=== PATIENT | female | born 1995 | race African-American/Black ===

== ENCOUNTER 2019-06-21 11:58 | Emergency (ER) | payer SELFPAY ==
--- NOTE | 2019-06-21 13:05 | ER Document Report ---
HPI - HPI Patient complains to provider of: skin infection Time Seen by Provider: 06/21/19 12:52 Onset: Other - 4 days Onset/Duration: Persistent Quality of pain: Achy Pain Level: 3 Context: Patient complains of skin infection to right axilla and to the mons pubis area. Patient denies any fever. Patient denies any history of MRSA. Associated Symptoms: denies: Fever Exacerbated by: Denies Relieved by: Denies Similar symptoms previously: No Recently seen / treated by doctor: No - ROS ROS below otherwise negative: Yes Systems Reviewed and Negative: Yes All other systems reviewed and negative - CONSTITUTIONAL Constitutional: DENIES: Fever - REPRODUCTIVE LMP: 06/19/19 Reproductive: DENIES: : - DERM Skin Color: Erythema Skin Problems: Pustule Past Medical History - General Information source: Patient - Social History Smoking Status: Never Smoker Frequency of alcohol use: Occasional Drug Abuse: None Occupation: none Family History: Reviewed & Not Pertinent - Medical History Medical History: Negative Surgical Hx: Negative Vertical Provider Document - CONSTITUTIONAL Agree With Documented VS: Yes Exam Limitations: No Limitations General Appearance: WD/WN, No Apparent Distress - INFECTION CONTROL TRAVEL OUTSIDE OF THE [place] IN LAST 30 DAYS: No - HEENT HEENT: Atraumatic, Normocephalic - NECK Neck: Normal Inspection, Supple - RESPIRATORY Respiratory: No Respiratory Distress - GI/ABDOMEN Gastrointestinal: Abdomen Soft - MUSCULOSKELETAL/EXTREMETIES Musculoskeletal/Extremeties: MAEW - NEURO Level of Consciousness: Awake, Alert, Appropriate Motor/Sensory: No Motor Deficit - DERM Integumentary: Warm, Dry. negative: Abscess Notes: Patient with erythematous papular, pustular lesions to right axilla and mons pubis. No concern for abscess Course - Re-evaluation Re-evalutation: 06/21/19 13:04 Patient presents with folliculitis likely from shaving. Discussed good skin care. Discussed worsening symptoms that patient should return. Patient stable for discharge at this time. - Vital Signs Vital signs: Temp Pulse Resp BP Pulse Ox 98.4 F 92 18 133/81 H 98 06/21/19 12:06 06/21/19 12:06 06/21/19 12:06 06/21/19 12:06 06/21/19 12:06 Discharge - Discharge Clinical Impression: Folliculitis Condition: Stable Disposition: HOME, SELF-CARE Instructions: Cephalexin ([facility]), Folliculitis ([facility]), Warm Packs ([facility]) Additional Instructions: Return immediately for any new or worsening symptoms Followup with your primary care provider, call tomorrow to make a followup appointment Prescriptions: Cephalexin Monohydrate [Keflex 500 mg Capsule] 500 mg PO Q6H 5 Days capsule Referrals: [facility] [Provider Group] - Follow up as needed
[2019-06-21 13:12] VITALS: BP 136/80
== END 2019-06-21 13:12 | disposition home or self-care (01) ==
LOC: ER 11:58
DX: L73.9 Follicular disorder, unspecified (principal)
CPT/HCPCS: 99282